=== PATIENT | female | born 1980 | race Caucasian/White ===

== ENCOUNTER 2016-10-05 06:58 | Emergency (ER) | payer OTHER ==
[~2016-10-05] VITALS: Ht 160 cm; Wt 63.5 kg
[2016-10-05] MEDS ORDERED: LEVO125T3 PO (07:04)
[2016-10-05 07:46] LABS: BASO # 0.1 K/mm3 (0.0-0.2); BASO % 1.2 % (0.0-1.0); EOS # 0.1 K/mm3 (0.0-0.50); EOS % 2.1 % (0.0-3.0); LARGE UNSTAINED CELL # 0.1 K/mm3 (0.0-0.4); LARGE UNSTAINED CELL % 2.2 % (0.0-4.0); LYMPH % 41.7 % (24.0-44.0); MEAN CORPUSCULAR HEMOGLOBIN 29.8 pg (27.0-33.0); MEAN CORPUSCULAR HGB CONC 33.9 g/dl (32.0-36.5); MONO # 0.2 K/mm3 (0.0-0.8); MONO % 4.4 % (0.0-5.0); NEUTROPHILS # 2.4 K/mm3 (1.8-7.7); NEUTROPHILS % 48.3 % (36.0-66.0); PLATELET COUNT, AUTOMATED 197 k/mm3 (150-450); RED CELL DISTRIBUTION WIDTH 12.4 % (11.5-14.5); WHITE BLOOD COUNT 4.9 K/mm3 (4.0-10.0)
[2016-10-05 07:59] LABS: CONTROL LINE HCG INT CTR LINE PRESENT
[2016-10-05 08:07] LABS: ALBUMIN 3.8 GM/DL (3.2-5.2); ALBUMIN/GLOBULIN RATIO 1.09 (1.00-1.93); ALKALINE PHOSPHATASE 56 U/L (45-117); ALT/SGPT 16 U/L (12-78); ANION GAP 5 MEQ/L (8-16); AST/SGOT 7 U/L (15-37); BILIRUBIN,DIRECT 0.1 MG/DL (0.0-0.2); BILIRUBIN,TOTAL 0.2 MG/DL (0.2-1.0); BLOOD UREA NITROGEN 11 MG/DL (7-18); CALCIUM LEVEL 8.3 MG/DL (8.5-10.1); CARBON DIOXIDE LEVEL 28 MEQ/L (21-32); CHLORIDE LEVEL 107 MEQ/L (98-107); CREATININE FOR GFR 0.91 MG/DL (0.55-1.02); GLOMERULAR FILTRATION RATE > 60.0 (>60); GLUCOSE, FASTING 85 MG/DL (70-105); POTASSIUM SERUM 3.9 MEQ/L (3.5-5.1); SODIUM LEVEL 140 MEQ/L (136-145); TOTAL PROTEIN 7.3 GM/DL (6.4-8.2)
[2016-10-05] MEDS ORDERED: ISOVUE-370 76% 100ML VIAL (Q9967) As Ordered ONE (08:27)
--- NOTE | 2016-10-05 08:58 | REP ---
Clinical: Right lower quadrant pain. Technique: Axial contrast enhanced images from the lung bases to the pubic symphysis using oral and 100 ml Isovue 370 intravenous contrast material with coronal and sagittal re-formations. Findings: Evaluation of the right lower quadrant demonstrates normal cecum with normal terminal ileum and appendix. There is no evidence for acute appendicitis. There is an irregularly shaped 3.5 cm rim enhancing and likely involuting possibly ruptured right ovarian cyst (images 103 - 115) which may be related to patient's symptoms. The uterus and left adnexa are otherwise normal. Liver demonstrates small subcentimeter hypodensities likely cysts. Spleen, pancreas, gallbladder, bilateral adrenal glands and kidneys are normal. The small large bowel is without obstruction or acute inflammatory process. Pelvis demonstrates normal bladder and age-appropriate uterus/left adnexa. Right adnexal changes as described above. No significant ascites. No free air. No significant adenopathy. Vasculature is normal. Musculoskeletal structures are intact. Lung bases clear. Impression: 1. Normal right lower quadrant and a normal appendix. 2. A 3.5 cm rim enhancing likely involuting and possibly ruptured right ovarian cyst may be related to patient's symptoms. Otherwise normal uterus and left ovary. 3. Remainder examination is normal. Signed by Hardik Steiner MD 10/05/2016 08:50 A
--- NOTE | 2016-10-05 10:51 | REP ---
Clinical: Right lower quadrant pain rule out torsion. Technique: Transabdominal pelvic ultrasound followed by transvaginal examination for better evaluation of the endometrium and adnexa with color Doppler evaluation of the ovaries. Findings: Heterogeneous anteverted uterus measures 6.9 x 3.2 x 4.7 cm. Anterior intramural fibroid measures 1.8 cm maximal diameter. The endometrial complex measures 11.4 mm thickness with complex endocervical fluid possibly hemorrhagic debris. Left ovary is normal in appearance and vascularity without torsion and measures 3.2 x 1.8 x 2.0 cm; RI equal 0.48. Right ovary measures 5.8 x 3.6 x 4.5 cm with normal vascularity and no evidence for torsion. RI equal 0.44. A 3.5 x 2.1 x 2.5 cm possibly ruptured and hemorrhagic cyst is identified with associated complex free fluid in the pelvis. Impression: 1. A 3.5 cm ruptured right ovarian cyst with small amount of complex fluid in the pelvis. 2. Complex likely hemorrhagic debris mildly distending the endocervical canal and 1.8 cm anterior intramural fibroid. Consider follow-up examination in 4-6 weeks to evaluate for resolution and reevaluation of the endometrial complex. Signed by Hardik Steiner MD 10/05/2016 10:42 A
[2016-10-05] MEDS ORDERED: NORCOTAB PO (11:07)
[2016-10-05 11:29] VITALS: BP 106/59
== END 2016-10-05 11:33 | disposition home or self-care (01) ==
LOC: M ED 08:14
DX: N83.201 Unspecified ovarian cyst, right side (principal); E05.00 Thyrotoxicosis with diffuse goiter without thyrotoxic crisis or storm; Z79.899 Other long term (current) drug therapy
CPT/HCPCS: 74177; 76830; 76856; 80048; 80076; 83690; 84703; 85025; 93976; 99284; Q9967

== ENCOUNTER → 2017-04-21 | Outpatient (REF) | payer OTHER ==
[~2017-04-21] MED LIST: LEVO125T4 PO; NORCOTAB PO
== END ==
LOC: M LAB REF 15:40
PROVIDERS: ATTEND Physician Assistant Surgical
DX: J02.9 Acute pharyngitis, unspecified (principal)